=== PATIENT | female | born 1950 | race Two or more races ===

== ENCOUNTER 2016-08-06 17:59 | Emergency (ER) | payer MEDICAID, OTHER ==
[~2016-08-06] VITALS: Ht 154.9 cm; Wt 59.0 kg
[2016-08-06] MEDS ORDERED: ALPR1TAB2 PO (18:51)
[2016-08-06] MEDS ORDERED: FAMO40TA7 PO (18:51)
[2016-08-06] MEDS ORDERED: OXYC-34 PO (18:51)
[2016-08-06] MEDS ORDERED: ZOLP10TA6 PO (18:51)
[2016-08-06 18:58] LABS: BASOPHILS % (AUTO) 0.8 % (0.0-2.0); DIFF TOTAL % 100 %; EOSINOPHILS # (AUTO) 0.1 /CMM (0.0-0.7); EOSINOPHILS % (AUTO) 2.9 % (0.0-6.0); HEMATOCRIT 35 % (33-45); HEMOGLOBIN 12.2 g/dL (11.5-14.8); LYMPHOCYTES % (AUTO) 46.7 % (20.0-44.0); MEAN CORPUSCULAR HEMOGLOBIN 32 PG (26.0-33.0); MEAN CORPUSCULAR HGB CONC 35 g/dl (31.0-36.0); MEAN CORPUSCULAR VOLUME 91 fL (82-100); MONOCYTES # (AUTO) 0.3 /CMM (0.1-1.30); MONOCYTES % (AUTO) 6.9 % (2.0-12.0); NEUTROPHILS # (AUTO) 1.8 /CMM (1.8-8.9); NEUTROPHILS % (AUTO) 42.7 % (43.0-81.0); PLATELET COUNT (AUTO) 194 /CMM (150-450); RED BLOOD CELL COUNT(AUTO) 3.87 MIL/uL (4.0-5.2); WHITE BLOOD COUNT (AUTO) 4.2 K/uL (4.3-11.0)
[2016-08-06] MEDS ORDERED: ASPIRIN 325 MG TABLET PO ONE (19:00)
[2016-08-06] MEDS ORDERED: MORPHINE SULFATE INJ 2 MG/ML DISP.SYRIN IV ONE (19:00)
[2016-08-06] MEDS ORDERED: NITROGLYCERIN 0.4 MG/TAB BOTTLE SL ONE (19:00)
[2016-08-06] MEDS ORDERED: ONDANSETRON HCL/PF 4 MG/2 ML VIAL IVP ONE (19:00)
[2016-08-06 19:08] LABS: ANION GAP 10 (5-14); CALCIUM, SERUM 9.3 mg/dL (8.5-10.1); CARBON DIOXIDE 33 mmol/L (21-32); CHLORIDE 103 mmol/L (98-107); CREATININE 0.5 mg/dL (0.6-1.3); GFR 124 mL/min (>60); GLUCOSE 88 mg/dL (74-106); POTASSIUM 3.8 mmol/L (3.5-5.1); SODIUM SERUM 142 mmol/L (136-145); UREA NITROGEN, BLOOD 8 mg/dL (7-18)
[2016-08-06 19:12] LABS: INR 1.02 (0.87-1.13); PROTHROMBIN TIME 10.7 SECS (9.5-12.7)
[2016-08-06] MEDS ORDERED: ASPIRIN 325 MG TABLET ONE (19:12)
[2016-08-06] MEDS ORDERED: MORPHINE SULFATE INJ 4 MG/ML DISP.SYRIN ONE (19:12)
[2016-08-06] MEDS ORDERED: ONDANSETRON HCL/PF 4 MG/2 ML VIAL ONE (19:13)
[2016-08-06] MEDS ORDERED: NITROGLYCERIN 0.4 MG/TAB BOTTLE ONE (19:13)
[2016-08-06 19:15] LABS: TROPONIN I < 0.017 ng/mL (0.00-0.056)
[2016-08-06 19:25] LABS: ALANINE AMINOTRANSFERASE 23 U/L (12-78); ALBUMIN 4.5 g/dL (3.4-5.0); ASPARTATE AMINOTRANSFERASE 14 U/L (15-37); BILIRUBIN,DIRECT 0.1 mg/dL (0.0-0.2); BILIRUBIN,TOTAL 0.5 mg/dL (0.2-1.0); INDIRECT BILIRUBIN 0.4 mg/dL (0.0-1.1); TOTAL PROTEIN, SERUM 7.2 g/dL (6.4-8.2)
[2016-08-06 20:31] VITALS: BP 121/66
== END 2016-08-06 20:33 | disposition left against medical advice (07) ==
LOC: ER 18:01
DX: R07.9 Chest pain, unspecified (principal); K58.9 Irritable bowel syndrome, unspecified; M54.9 Dorsalgia, unspecified; G89.29 Other chronic pain; Z85.038 Personal history of other malignant neoplasm of large intestine
CPT/HCPCS: 36415; 71010-TC; 80048-TC; 80076-TC; 83880; 84484-TC; 85025-TC; 85730-TC; A4606; J2270; J2405; Z7610

== ENCOUNTER 2020-06-12 16:51 | Emergency (ER) | payer MEDICARE, OTHER ==
[~2020-06-12] VITALS: Ht 154.9 cm; Wt 54.9 kg
[~2020-06-12 16:51] MED LIST: ALPR1TAB2 PO; FAMO40TA7 PO; OXYC-133 PO; ZOLP10TA6 PO
--- NOTE | 2020-06-12 17:10 | NUR ---
LEFT FACIAL WEAKNESS X 7 DAYS NIHSS -1 (VERY MILD)
--- NOTE | 2020-06-12 17:10 | NUR ---
EQUAL HAND HISTOLOGY SPECIALIST; EOM- EQUAL PEERL
--- NOTE | 2020-06-12 17:21 | NUR ---
IV L AC 18G
[2020-06-12 17:39] LABS: BASOPHILS % (AUTO) 0.7 % (0.0-2.0); EOSINOPHILS % (AUTO) 2.1 % (0.0-6.0); HEMATOCRIT 39 % (33-45); HEMOGLOBIN 12.6 g/dL (11.5-14.8); LYMPHOCYTES # (AUTO) 1.7 /CMM (0.8-4.8); LYMPHOCYTES % (AUTO) 32.8 % (20.0-44.0); MEAN CORPUSCULAR HGB CONC 32 g/dl (31.0-36.0); MEAN CORPUSCULAR VOLUME 95 fL (82-100); MONOCYTES # (AUTO) 0.4 /CMM (0.1-1.30); NEUTROPHILS % (AUTO) 57.4 % (43.0-81.0); PLATELET COUNT (AUTO) 219 /CMM (150-450); RED BLOOD CELL COUNT(AUTO) 4.13 MIL/uL (4.0-5.2); WHITE BLOOD COUNT (AUTO) 5.2 K/uL (4.3-11.0)
[2020-06-12 17:45] LABS: CALCIUM, SERUM 10.1 mg/dL (8.5-10.1); CARBON DIOXIDE 32 mmol/L (21-32); CHLORIDE 103 mmol/L (98-107); CREATININE 0.4 mg/dL (0.6-1.3); GLUCOSE 128 mg/dL (74-106); POTASSIUM 3.9 mmol/L (3.5-5.1); SODIUM SERUM 143 mmol/L (136-145); UREA NITROGEN, BLOOD 8 mg/dL (7-18)
--- NOTE | 2020-06-12 19:39 | NUR ---
Patient discharged to home in stable condition. Written and verbal after care instructions given. Patient verbalizes understanding of instruction. IV removed. Catheter intact and site benign. Pressure and 4x4 applied to site. No bleeding noted.
[2020-06-12 19:40] VITALS: BP 151/78
== END 2020-06-12 19:41 | disposition home or self-care (01) ==
LOC: ER 16:56
DX: F41.9 Anxiety disorder, unspecified (principal); R51.9 Headache, unspecified; K21.9 Gastro-esophageal reflux disease without esophagitis; G89.29 Other chronic pain; M54.5 Low back pain; Z98.890 Other specified postprocedural states; Z85.038 Personal history of other malignant neoplasm of large intestine; Z79.899 Other long term (current) drug therapy
CPT/HCPCS: 36415; 70450-TC; 71045-TC; 80048-TC; 84484-TC; 85025-TC

== ENCOUNTER 2020-11-29 20:32 | Emergency (ER) | payer MEDICARE, OTHER ==
[~2020-11-29] VITALS: Ht 154.9 cm; Wt 56.7 kg
--- NOTE | 2020-11-29 21:10 | NUR ---
PT BIBSELF C/O LUQ PAIN BELOW BREAST THAT RADIATES TO BACK WITH TINGLING ARM. pT AAOX4 BREATHING EVENLY AND UNLABORED. PT ATTACHED TO MONITOR AND POX. PT SKIN WARM, DRY, AND INTACT. PT GIVEN BLANKET AND CALL LIGHT WITHIN REACH
--- NOTE | 2020-11-29 21:45 | NUR ---
BLOOD OBTAINED AND SENT TO LAB
[2020-11-29 21:52] LABS: EOSINOPHILS % (AUTO) 2.1 % (0.0-6.0); HEMATOCRIT 38 % (33-45); HEMOGLOBIN 12.7 g/dL (11.5-14.8); LYMPHOCYTES # (AUTO) 1.9 /CMM (0.8-4.8); LYMPHOCYTES % (AUTO) 38.4 % (20.0-44.0); MEAN CORPUSCULAR HGB CONC 34 g/dl (31.0-36.0); MEAN CORPUSCULAR VOLUME 93 fL (82-100); MONOCYTES # (AUTO) 0.3 /CMM (0.1-1.30); MONOCYTES % (AUTO) 6.9 % (2.0-12.0); NEUTROPHILS # (AUTO) 2.5 /CMM (1.8-8.9); NEUTROPHILS % (AUTO) 51.6 % (43.0-81.0); PLATELET COUNT (AUTO) 238 /CMM (150-450); RED BLOOD CELL COUNT(AUTO) 4.08 MIL/uL (4.0-5.2); WHITE BLOOD COUNT (AUTO) 4.9 K/uL (4.3-11.0)
[2020-11-29] MEDS ORDERED: KETOROLAC TROMETHAMINE 15 MG/ML VIAL ONE (22:00)
[2020-11-29] MEDS ORDERED: KETOROLAC TROMETHAMINE INJ 30 MG/ML VIAL IV ONE (22:00)
[2020-11-29 22:01] LABS: CALCIUM, SERUM 9.5 mg/dL (8.5-10.1); CARBON DIOXIDE 33 mmol/L (21-32); CHLORIDE 105 mmol/L (98-107); CREATININE 0.5 mg/dL (0.6-1.3); GLUCOSE 113 mg/dL (74-106); POTASSIUM 3.9 mmol/L (3.5-5.1); SODIUM SERUM 143 mmol/L (136-145); UREA NITROGEN, BLOOD 4 mg/dL (7-18)
[2020-11-29 22:06] LABS: ALANINE AMINOTRANSFERASE 24 U/L (12-78); ALBUMIN 4.2 g/dL (3.4-5.0); ALKALINE PHOSPHATASE 64 U/L (46-116); ASPARTATE AMINOTRANSFERASE 17 U/L (15-37); BILIRUBIN,DIRECT 0.1 mg/dL (0.0-0.2); BILIRUBIN,TOTAL 0.4 mg/dL (0.2-1.0); TOTAL PROTEIN, SERUM 7.3 g/dL (6.4-8.2)
--- NOTE | 2020-11-30 00:54 | NUR ---
called lab to f/u for repeat trop
--- NOTE | 2020-11-30 00:57 | NUR ---
lab at bedside for trop redraw
[2020-11-30] MEDS ORDERED: IBUP-1953 PO (01:33)
--- NOTE | 2020-11-30 01:39 | NUR ---
Patient discharged to home in stable condition. Written and verbal after care instructions given. Patient verbalizes understanding of instruction. IV removed. Catheter intact and site benign. Pressure and 4x4 applied to site. No bleeding noted. Pt ambulatory with a steady gait
[2020-11-30 01:56] VITALS: BP 138/81
== END 2020-11-30 01:39 | disposition home or self-care (01) ==
LOC: ER 20:43
DX: R07.89 Other chest pain (principal); K21.9 Gastro-esophageal reflux disease without esophagitis; M54.9 Dorsalgia, unspecified; G89.29 Other chronic pain; Z85.038 Personal history of other malignant neoplasm of large intestine; Z98.890 Other specified postprocedural states; Z79.899 Other long term (current) drug therapy
CPT/HCPCS: 36415 ×2; 71045; 76705; 80048; 80076; 84484 ×2; 85025; 93005 ×2; 96374; 99285; J1885